=== PATIENT | male | born 1980 | race Two or more races ===

== ENCOUNTER 2020-03-19 13:25 | Outpatient (REF) | payer OTHER, SELFPAY ==
[2020-03-20 21:37] LABS: Follicle Stimulating Hormone 5.3 mIU/mL (1.6-8.0); Lutenizing Hormone 11.2 mIU/mL (1.5-9.3)
[2020-03-25 14:11] LABS: Testosterone, Total 389 ng/dL (250-1100)
[2020-03-25 16:32] LABS: Alpha Fetoprotein 2.5 ng/mL (<6.1)
== END 2020-03-19 13:26 | disposition home or self-care (01) ==
LOC: HO.LAB 13:25
PROVIDERS: PCP Internal Medicine; Visit Provider Urology
DX: N46.9 Male infertility, unspecified (principal)
CPT/HCPCS: 82105; 83001; 83002; 84402; 84403

== ENCOUNTER 2021-11-10 14:11 | Outpatient (REF) | payer OTHER, SELFPAY ==
[2021-11-15 20:22] LABS: Testosterone, Free 43.8 pg/mL (35.0-155.0); Testosterone, Total 256 ng/dL (250-1100)
== END 2021-11-10 14:12 | disposition home or self-care (01) ==
LOC: HO.MANLDS 14:11
PROVIDERS: Visit Provider Physician Assistant
DX: Z13.89 Encounter for screening for other disorder (principal)
CPT/HCPCS: 36415; 84402; 84403

== ENCOUNTER 2023-09-03 16:19 | Outpatient (REF) | payer OTHER, SELFPAY ==
[2023-09-03 17:35] LABS: MANUAL DIFF FLAG NO
[2023-09-03 17:42] LABS: Basophils Percent Auto 0.4 % (0-2); Eosinophils Absolute Auto 0.1 X10*3/uL (0.0-0.4); Eosinophils Percent Auto 1.5 % (0-4); Hematocrit 42.7 % (42.0-52.0); Hemoglobin 14.9 g/dl (14.0-18.0); Imm Gran Abs Auto 0.01 X10*3/uL (0.00-0.03); Imm Gran Pct Auto 0.2 % (0.0-0.4); Lymphocytes Absolute Auto 1.4 X10*3/uL (1.2-4.9); Lymphocytes Percent Auto 25.6 % (20-40); Mean Corpuscular HGB Conc 34.9 g/dl (31.0-36.0); Mean Corpuscular Hemoglobin 30.8 pg (27.0-33.0); Mean Corpuscular Volume 88.4 fL (80.0-98.0); Monocytes Absolute Auto 0.4 X10*3/uL (0.1-1.2); Monocytes Percent Auto 7.3 % (2-11); Neutrophils Absolute Auto 3.6 x10*3/uL (2.0-8.3); Platelet Count 174 X10*3/uL (160-400); Red Blood Count 4.83 X10*6/uL (4.60-5.80); Red Cell Distribution Width 13.1 % (11.0-16.0); White Blood Count 5.5 X10*3/uL (4.8-10.8)
[2023-09-03 18:37] LABS: Alanine Aminotransferase 35 U/L (0-40); Albumin Level 4.6 g/dL (3.5-5.0); Alkaline Phosphatase 84 U/L (39-117); Anion Gap 15 (12-20); Aspartate Amino Transferase 21 U/L (5-37); Bilirubin Total 0.3 mg/dL (0.0-1.0); Blood Urea Nitrogen 24 mg/dL (9-16); Calcium 9.3 mg/dL (8.4-10.2); Carbon Dioxide 25 mmol/L (22-29); Chloride 106 mmol/L (96-108); Estimated Glomerular Filt Rate > 60; Glucose Random 104 mg/dL (60-115); Potassium 3.6 mmol/L (3.3-5.1); Sodium 142 mmol/L (135-145); Total Protein 7.7 g/dL (6.5-8.0)
== END 2023-09-03 16:20 | disposition home or self-care (01) ==
LOC: HO.MANLDS 16:19
PROVIDERS: Visit Provider Physician Assistant
DX: Z01.818 Encounter for other preprocedural examination (principal)
CPT/HCPCS: 36415; 80053; 85025

== ENCOUNTER 2024-08-08 11:23 | Outpatient (REF) | payer OTHER, SELFPAY ==
--- OUTSIDE RECORDS SUMMARY | 2024-08-08 14:05 | XMS_ITS | Encounter Summary ---
Author Organization [facility] Address [address] [place] [address] Care Team Providers Care Inspector Final Assembly Conveyor Line Name Role Phone Pcp, No Primary Care Provider Unavailabl e Encounter Details Date Type Department Care Team (Late st Contact Info) Description 07/24/2024 Telephone [facility] [place] [address] [facility], [place] [address] Aston Talavera MD [address] [place] [address] [phone] Social History Tobacco Use Types Packs/Day Years Used Date Smoking Tobacco: Never Assessed Sex and Gender Information Value Date Recorded Sex Assigned at Not on file Gender Identity Not on file Sexual Orientation Not on file documented as of this encounter Miscellaneous Notes * Telephone Encounter - Kirsten Jack MA - 07/24/2024 9:15 AM EST Called and spoke with patients spouse. [facility] She will discuss further options with the sleep medicine providers. * Telephone Encounter - Kirsten Jack MA - 07/24/2024 9:15 AM EST ----- Message from Aston Talavera MD sent at 07/22/2024 5:31 PM EST ----- Regarding: Sleep study results Can you let Mandaen know his sleep study shows persistent sleep apnea. I recommend he be referredto sleep medicine for a more accurate in-lab study and possible CPAP titration/CPAP trial. Thanks ----- Message ----- From: Josefa Corbett Sent: 07/21/2024 1:03 PM EST To: Aston Talavera MD For your review. documented in this encounter Plan of Treatment Not on file documented as of this encounter Visit Diagnoses Not on filedocumented in this encounter Care Teams Inspector Final Assembly Conveyor Line Relationship Specialty Start Date End Date Pcp, No PCP - General General Medicine 06/13/24 documented as of this encounter
--- OUTSIDE RECORDS SUMMARY | 2024-08-08 14:05 | XMS_ITS ---
Author Name [facility] Organization Unknown Encounters Encounter Type Encounter Reason Primary Diagnosis Location Date Ambulatory Obstructive sleep apnea (adult) (pediatric) Obstructive sleep apnea (adult) (pediatric) [facility] 03/10/2024
--- OUTSIDE RECORDS SUMMARY | 2024-08-08 14:05 | XMS_ITS | Clinical Summary ---
Author Organization [facility] Address [address] [place] [id number] Care Team Providers Care Machine Lacer Name Role Phone Pcp, No Primary Care Provider Unavailabl e Encounters Date Type Department Care Team Description 07/24/2024 Telephone [facility] [place] [address] [facility], [place] [address] Aston Talavera MD 06/09/2024 Telephone [facility] [place] [address] [place] [address] Aston Talavera MD from Last 3 Months Social History Tobacco Use Types Packs/Day Years Used Date Smoking Tobacco: Never Assessed Sex and Gender Information Value Date Recorded Sex Assigned at Not on file Gender Identity Not on file Sexual Orientation Not on file Plan of Treatment Health Maintenance Due Date Last Done Comments Hepatitis C Virus Screening 1981 HIV Screening 1994 DTaP/Tdap/Td Vaccines (1 - Tdap) 2000 Hepatitis B Vaccines (1 of 3 - 19+ 3-dose series) 2000 Influenza Vaccine 12/30/2023 COVID-19 Vaccine (2023-2 5 season) 2024 HPV Vaccines Aged Out No longer eligi ble based on patient's age to complete this topic Pneumococcal Vaccine: Pediat stacey (0-5 Years) and At-Risk Patients (6 to 49 Years) Aged Out No longer eligible b ased on patient's age to complete this topic Care Teams Machine Lacer Relationship Specialty Start Date End Date Pcp, No PCP - General General Medicine 06/13/24
--- OUTSIDE RECORDS SUMMARY | 2024-08-08 14:05 | XMS_ITS | Data Portability ---
Author Organization [facility], Home Service Address [address] [place] [address] Assessment Encounter Date Assessment Date Assessment LastModified by Organization Details LastModified Time 03/22/2023 03/22/2023 The patient denies little pleasure in activities they find enjoyable, feeling depressed, difficulties sleeping, feeling tired or having little energy, change in appetite, feeling guilty, overwhelmed or unmotivated. The patient denies suicidal ideation, thoughts of hurting themselves or others. Their mood is appropriate, they show good judgement and clear understanding of the conversation. They are orientated to time, place and person. They are not expressing any concerning thoughts or actions that would need further investigation and treatment for mental health. [email or web address] Not available 03/22/2023 10:08:14 Plan of Treatment Reminders Order Date Submit Date Provider Last Modified By Organization Details Last Modified Time Details Appointments ANNUAL EXAM 2024 03:45P M CALIN RAYA Not available Not available Not available Lab CMP, serum or plasma 2023 024 [facility], [address], [address], [place], [address], 02/21/2024 00:14:02 lipid panel, blood 2023 024 [facility], [address], [address], [place], [address], 02/21/2024 00:14:02 CBC w/ auto diff 2023 024 [facility], [address], [address], [place], [address], 02/18/2024 22:58:39 hemoglobi n A1c, QN, blood 2023 024 [facility], [address], [address], [place], [address], 02/18/2024 23:25:58 vitamin D, 25-hydrox y, total, serum 2023 024 [facility], [address], [address], [place], [address], 02/21/2024 00:14:02 PSA, total + free, serum or plasma 2023 024 [facility], [address], [address], [place], [address], 02/14/2024 08:44:05 TSH + free T4, serum 2023 024 [facility], [address], [address], [place], [address], 02/14/2024 08:44:05 urinalysi s complete, reflex culture 2023 024 [facility], [address], [address], [place], [address], 02/19/2024 09:02:53 CBC w/ auto diff 2023 024 [facility], [address] [place] [address], [place], [address], 09/06/2023 11:41:24 CMP, serum or plasma 2023 024 [facility], [address] [place] [address], [place], [address], 09/06/2023 11:41:24 HbA1c (hemoglob in A1c), blood 2022 023 [facility], [address] [facility], [address], [place], [address], 01/29/2023 16:32:45 lipid panel, serum 2022 023 [facility], [address] [place] [address], [address], 02/05/2023 08:23:23 CMP, serum or plasma 2022 023 [facility], [address] [place] [address], [id number], 01/29/2023 16:32:45 CBC w/ auto diff 2022 023 [facility], [address] [place] [address], [address], 01/29/2023 16:32:45 testoster one, free + total, serum 2022 023 [facility], [address] [place] [address], [id number], 03/18/2023 18:13:40 Referral None recorded. Procedures None recorded. Surgeries None recorded. Imaging None recorded. Medication Orders minoxidil 2.5 mg tablet [address] [facility] #[id number], [address] [place], [place], [id number], 02/11/2024 16:18:46 testoster one cypionate 200 mg/mL intramusc ular oil [address] [facility] #[id number], [address] [place], [place], [id number], 02/11/2024 16:08:46 testoster one 12.5 mg/1.25 gram per pump actuation (1%) transderm al gel 2022 023 [facility] #22984, [address] [place], [place], [id number], 05/26/2023 15:45:04 minoxidil 2.5 mg tablet 2022 023 [facility] #[id number], [address], [place], [place], [id number], 03/18/2023 14:26:12 lorazepam 1 mg tablet 2022 023 [facility], [address], [place], [place], [id number], 01/29/2023 16:32:45 Patient TargetsNo targets recorded. Patient InstructionsNo instructions recorded. Reason for Referral None Reported. Results Created Date Observation Date Name Description Value Unit Range Abnormal Flag Note LastModifiedBy Organization Detail LastModifiedTime Result Notes None recorded. 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 on and off steroids Not Available [facility] 3 12:37:09 COVID-19 577876532 Active 2021 Not Available [facility] 3 12:37:09 Cough 38587746 Active 2021 Not Available [facility] 3 12:37:09 Intolera nce to lactose 304463977 Active 2021 Not Available [facility] 3 12:37:09 Fatigue 08349095 Active 2021 Not Available [facility] 3 12:37:09 Umbilica l hernia 057864309 Active 2021 Not Available [facility] 3 12:37:09 SARS-CoV -2 Active 2021 Not Available [facility] 3 12:37:09 Testoste una level below referenc e range 022202642 Active 2021 Not Available [facility] 3 12:37:09 Gastroes ophageal reflux disease 310739759 Active 2022 Not Available [facility] 3 12:37:09 Hypogona dism 52638822 Active 2022 Not Available [facility] 3 12:37:09 Loss of hair 868211000 Active 2022 Not Available [facility] 3 12:37:09 Primary hypogona dism 458438394 Active 2022 Not Available [facility] 3 12:37:09 Diarrhea 97811235 Active 2024 CALIN RAYA [address] [place] [address], [address], [facility] 5 18:59:06 Notes:Some problems listed i n Documents: #[id number], #[id number] could not be added to this patient's chart. Please review these documents and add these problems to the patient's chart manually as needed. Problem Notes None recorded. Medical Equipment None Reported. Allergies No known drug allergies Medications Name Sig Start Date Stop Date Status Note LastModified by Organization Details LastModified Time alcohol swabs 70 % pads 02/10 completed Not Available Not Available Not Available lorazepam 1 mg tabs 02/12 completed Not Available Not Available Not Available amox/k clav tab 875-125 02/11 completed Not Available Not Available Not Available bupropion HCl SR 150 mg tablet,12 hr sustained-r elease 01/27 completed Not Available Not Available Not Available azithromyci n 250 mg tablet TK 2 TS PO ON DAY 1, THEN TK 1 T PO D FOR 4 DAYS 01/29 completed Not Available Not Available Not Available cephalexin 250 mg capsule 01/27 completed Not Available Not Available Not Available hydrocodone 5 mg-acetamin ophen 325 mg tablet TAKE 1 TABLET BY MOUTH EVERY 6 HOURS NEEDED 01/29 completed Not Available Not Available Not Available acetaminoph en 300 mg-codeine 30 mg tablet 01/28 completed Not Available Not Available Not Available minoxidil 2.5 mg tablet TAKE 2 TABLETS BY MOUTH EVERY DAY active Not Available Not Available No t Available minoxidil 5 % topical solution APPLY 1 MILLILITE R BY TOPICAL ROUTE 2 TIMES PER DAY , EVERY DAY, DIRECTLY ONTO THE SCALP IN THE HAIR LOSS AREA 01/27 completed Not Available Not Available Not Available triamcinolo ne acetonide 0.1 % topical cream APPLY A THIN LAYER TO THE AFFECTED AREA(S) BY TOPICAL ROUTE 2 TIMES PER DAY 01/27 completed Not Available Not Available Not Available amoxicillin 875 mg tablet 01/27 completed Not Available Not Available Not Available BD Luer-Kaz Syringe 3 mL 23 gauge x 1 1/2 USE TO ADMINISTE R TESTOSTER ONE active Not Available Not Available No t Available omeprazole 20 mg capsule,del ayed release TAKE 1 CAPSULE BY MOUTH EVERY DAY 01/29 completed Not Available Not Available Not Available alcohol swabs USE 1 PAD TWICE A WEEK active Not Available Not Available No t Available lorazepam 1 mg tablet TAKE 1 TABLET BY MOUTH EVERY 8 HOURS NEEDED active Not Available Not Available No t Available testosteron e cypionate 200 mg/mL intramuscul ar oil ADMINISTE R 0.5 ML IN THE MUSCLE 2 TIMES A WEEK 2023 active Not Available Not Available Not Avai lable cefprozil 250 mg tablet 01/28 completed Not Available Not Available Not Available methylpredn isolone 4 mg tablets in a dose pack 01/28 completed Not Available Not Available Not Available testosteron e 1 % (25 mg/2.5 gram) transdermal gel packet use as directed 05/26 completed Not Available Not Available Not Available cefdinir 300 mg capsule 01/28 completed Not Available Not Available Not Available doxycycline hyclate 100 mg tablet Take 1 tablet twice a day by oral route for 1 day. 10/29 completed Not Available Not Available Not Available finasteride 1 mg tablet TAKE 1 TABLET BY MOUTH EVERY DAY 02/11 completed Not Available Not Available Not Available testosteron e 1 % (50 mg/5 gram) transdermal gel packet APPLY 1 PACKET TOPICALLY EVERY DAY DIRECTED 09/05 completed Not Available Not Available Not Available oxycodone 5 mg tablet TAKE 1 TABLET BY MOUTH EVERY 4 HOURS FOR 5 DAYS NEEDED FOR SEVERE PAIN 10/10 completed Not Available Not Available Not Available Testim 50 mg/5 gram (1 %) transdermal gel APPLY 1 PACKET TOPICALLY DAILY DIRECTED 10/10 completed Not Available Not Available Not Available testosteron e 12.5 mg/1.25 gram per pump actuation (1%) transdermal gel APPLY 4 PUMPS TOPICALLY TO THE AFFECTED AREA EVERY DAY 05/26 completed Not Available Not Available Not Available BD Integra Syringe 3 mL 21 gauge x 1 / DIRECTED 02/10 completed Not Available Not Available Not Available PreviDent 5000 Booster Plus 1.1 % dental paste BRUSH WITH A PEA-SIZED AMOUNT ONCE DAILY AND EXPECTORA TE active Not Available Not Available No t Available Vitals Date Recorded Body height Body mass index (BMI) Body weight Heart rate Oxygen saturation Oxygen saturation in Arterial blood by Pulse oximetry Systolic blood pressure Diastolic blood pressure Provider Name and Address Organization Details Last Updated DateTime 2 172.72 cm 31.9 kg/m2 50153.0 4 g 72 /min 98 % 98 % 122 mm[Hg] 78 mm[Hg] Josi Bob [facility] 2 16:11:51 Date Recorded Body weight Body mass index (BMI) Body height Heart rate Oxygen saturation Oxygen saturation in Arterial blood by Pulse oximetry Systolic blood pressure Diastolic blood pressure Provider Name and Address Organization Details Last Updated DateTime 3 65607.8 1 g 31.8 kg/m2 172.72 cm 70 /min 98 % 98 % 138 mm[Hg] 80 mm[Hg] Faina Vergara [facility] 3 16:05:47 Date Recorded Body height Body mass index (BMI) Body weight Heart rate Oxygen saturation Oxygen saturation in Arterial blood by Pulse oximetry Systolic blood pressure Diastolic blood pressure Provider Name and Address Organization Details Last Updated DateTime 4 172.72 cm 31.9 kg/m2 71921.4 g 86 /min 97 % 97 % 128 mm[Hg] 82 mm[Hg] Dakota Patino [facility] 4 16:02:22 Date Recorded Body height Body mass index (BMI) Body weight Heart rate Oxygen saturation Oxygen saturation in Arterial blood by Pulse oximetry Systolic blood pressure Diastolic blood pressure Provider Name and Address Organization Details Last Updated DateTime 4 172.72 cm 33.2 kg/m2 96632.9 3 g 86 /min 95 % 95 % 124 mm[Hg] 88 mm[Hg] Corinne Georgi [facility] 4 16:02:06 Social History Question Answer Notes LastModified by Organizat ion Details LastModified Time Tobacco Smoking Status Never Smoker Dona Nikita walters [facility] 01/28/2018 09:17:51 What Was The Date Of Your Most Recent Tobacco Screening? 02/11/2024 [email or web address] Information not available 02/11/2024 Do You Or Have You Ever Used Any Other Forms Of Tobacco Or Nicotine? No [email or web address] Information not available 01/29/2023 Sex: Unknown Functional Status None recorded. Mental Status None recorded. Family History Nothing Reported. Medical History No medical history recorded. Immunizations Vaccine Type Date Status Note Provider Nam e and Address Organization Details Recorded Time Tdap 02/05/2011 completed Not Available [facility] 04/13/2023 12:37:10 Past Encounters Encounter ID Performer Location Encounter Start Date Encounter Closed Date Diagnosis/Indication Diagnosis SNOMED-CT Code Diagnosis ICD10 Code Diagnosis Note [id number] [facility] [address] [place] [address], [place] [address] 01/28/2018 09:14:33 01/28/2018 09:42:40 Adult health examination 116149142 Z00.01 Impaired f asting glycemia 517903794 R73.01 Eczema 38121265 L30.9 currently inactive 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 [id number] [facility] [address] [facility],[place] [address] 01/27/2019 16:03:34 01/27/2019 16:47:46 Male pattern alopecia 38244621 L64.9 Adult heal th examination 828113813 Z00.00 Active or passive immunization 858741677 Z23 Abnormal testosterone 13 7374995 R94.7 Venereal d isease screening 571155346 Z11.3 [id number] CALIN RAYA [facility] [address] [facility] [address] [address] 02/12/2020 08:58:46 02/12/2020 10:33:20 Adult health examination 635844226 Z00.00 BP is excellent today Screening for cardiovascular system disease 850752359 Z13.6 will check labs Umbilical hernia 3141651 07 K42.9 will have him evaluated by general surgery [id number] CALIN RAYA [facility] [address] [facility] [address] [address] 10/29/2021 09:41:53 10/29/2021 15:17:20 History of hernia repair 2743342628 9109 Z98.890 can take PRN following hernia repair surgery Anxiety 38338863 F41.1 will need refill Cough 36500634 R05.1 can use mucinex if needed COVID-19 777154364 U07.1 will continue to monitor symptoms [id number] CALIN RAYA [facility] [address] [facility],[place] [address] 11/10/2021 13:33:10 11/11/2021 09:15:25 Intolerance to lactose 689856464 E73.0 will fu with log tumbler referral Fatigue 17306220 R53.83 will fu with testostero ne check Umbilical hernia 7972098 07 K42.9 resolved with surgery [id number] CALIN RAYA [facility] [address] [facility] [address] [address] 01/28/2022 15:59:47 01/28/2022 16:37:35 Active or passive immunization 729373447 Z23 pt advised past due; will consider getting at [facility] Adult heal th examination 557688776 Z00.00 BP is excellent today Depression screening 171 792782 Z13.31 negative/ score 2 [id number] CALIN RAYA [facility] [address] [facility] [address] [address] 01/29/2023 15:59:13 01/29/2023 16:46:24 Active or passive immunization 937447154 Z23 pt advised past due; will consider getting at pharm Adult [facility] th examination 639116065 Z00.00 BP is excellent today Anxiety 79397475 F41.1 will need refill Gastroesop hageal reflux disease 412065024 K21.9 Hypercholesterolemia 136 39869 E78.2 needs recheck BW Impaired f asting glycemia 349988180 R73.01 stableneed s recheck Testostero ne level below reference range 195930936 R79.89 will set up with levels again per endo Hypogonadism 49124554 E2 9.1 will set up with T level Loss of hair 573048493 L 63.1 switch to pilldoes not want topical [id number] CALIN RAYA [facility] [address] [facility],[place] [address] 03/22/2023 09:03:19 03/22/2023 10:41:05 Primary hypogonadism 259407938 E29.1 will set up with T gel againtwo low values, [facility], worsening Impaired f asting glycemia 019805667 R73.01 A1c is up to 6.0%discus sed dietary changes [id number] CALIN RAYA Internal [facility] [address] [place] [address] 09/03/2023 15:58:30 09/03/2023 16:17:12 Pre-surgery evaluation 619608579 Z01.818 The patient was seen in the office today for pre-op evaluation . All medical conditions on patient's problem list were addressed and are currently stable, no interventi on needed at this time. Based on history and physical performed, the patient is cleared for surgery. lab work will be sent separately [id number] CALIN RAYA Internal [facility] [address] [facility],[place] [address] 02/11/2024 15:57:28 02/11/2024 16:31:55 Active or passive immunization 792319262 Z23 pt advised past due; will consider getting at pharm Adult [facility] th examination 555417524 Z00.00 BP is excellent today Depression screening 171 760796 Z13.31 negative/ score 2 Primary hypogonadism 370 005843 E29.1 increased to twice a week instead for better effect for patientnee ds adjustment of needle amount Loss of hair 160828866 L 63.1 switch to pilldoes not want topical Health Concerns Section Related Observation LastModified by Organization Detai ls LastModified Time None Recorded Concern Status LastModified by Organization Details LastModified Time None Recorded Advance Directives Directive None Recorded Payers Encounter Date Sequence Insurance Name Policy Number Policy Rios Covered Member ID Rios Member ID Guarantor Name 01/28/2022 1 [facility] [id number] [employer] [id number] [employer] 01/29/2023 1 [facility] [id number] [employer] [id number] [employer] 03/22/2023 1 [facility] [id number] [employer] [id number] [employer] 09/03/2023 1 [facility] [id number] [employer] [id number] [employer] 02/11/2024 1 [facility] [id number] [employer] [id number] [employer] Notes Date Note Type Note Provider Name a md Address Organization Details Recorded Time text/html Annual WellnessReported bypatient.Diet and Nutrition:healthy diet; discussed vitamin and supplement use; discussed portion control; discussed maintaining calcium balance; discussed diet improvement Fracture Risk:no history of fractures; no recent explained fracture; no sudden unexplained fractures; no previous musculoskeletal injuries Physical Activity:exercises on a regular basis; recent increase in physical activity; good physical condition Additional Lifestyle Factors:no tobacco use; drinks alcohol (mild-moderate) Depression Risk:never feels sad, empty, or tearful; no loss of interest in activities; no significant changes in weight; no sleep disturbances or insomnia; no agitation; no loss of energy; no feelings of worthlessness or guilt; no thoughts of suicide;history of mood disorders;history of depression; will fu with enodrine for T levels and start that Hearing:no loss of hearing Vision:no vision problems the patient bowels and sleeping has improved after the correction of the umbilical herniaseeing DChivo Steve for his testosterone CALIN RAYA [address] [place], [address], [facility] 01/28/2022 16:33:27 3 text/html Annual WellnessReported bypatient.Diet and Nutrition:healthy diet; discussed vitamin and supplement use; discussed portion control; discussed maintaining calcium balance; discussed diet improvement Fracture Risk:no history of fractures; no recent explained fracture; no sudden unexplained fractures; no previous musculoskeletal injuries Physical Activity:exercises on a regular basis; recent increase in physical activity; good physical condition Additional Lifestyle Factors:no tobacco use; no alcohol intake; stopped drinking alcohol Depression Risk:never feels sad, empty, or tearful; no loss of interest in activities; no significant changes in weight; no sleep disturbances or insomnia; no agitation; no loss of energy; no feelings of worthlessness or guilt; no thoughts of suicide; no history of depression; no history of mood disorders Hearing:no loss of hearing Vision:no vision problems discussed endo F/Usuggested getting levels down in the afternoonpt agreestrying to get medication covered has f/u with sleep medicine for repeat surgery CALIN RAYA [address] [place], [address], [facility] 01/29/2023 16:40:23 3 text/html f/u lab work tele-med phone callpatient consents to phone call the patient has seen endo for the T, no changes in their therapy, was not able to start T gelthe patient continues with weight gain, fatigue, hair changes, low libidowill set up with T gel again and try pushing it through the insurance the patient and I discussed sugar level, A1c is 6.0% will set up with diet and exercise planworking on exercise as well CALIN RAYA [address] [place], [address], [facility] 03/22/2023 10:11:11 4 text/html Pre-OpReported bypatient.Surgery to be Performed:palatoplast y with Dr. Aston Talavera at [facility] Context/Condition Being Addressed:palatoplast y Risk Factorsno cognitive impairment; no functional impairment; no malnutrition; no frailty; able to climb a flight of stairs (exercise capacity>4 METS); no obstructive sleep apnea; non-smoker; no alcohol misuse; no illicit drug use; no chronic cardiopulmonary condition; not obese Anesthesia hx:no hx of anesthesia complications; no allergy to anesthetic agents; no family history of anesthesia complications Functional Ability:able to walk up stairs; able to perform heavy work around the house; no difficulty walking up hills; able to walk 4 mph Post-Op Support:adequate assistance at home () CALIN RAYA [address] [place] [address], [address], [facility] 09/03/2023 16:12:34 4 text/html Annual WellnessReported bypatient.Diet and Nutrition:healthy diet; discussed vitamin and supplement use; discussed portion control; discussed maintaining calcium balance; discussed diet improvement Fracture Risk:no history of fractures; no recent explained fracture; no sudden unexplained fractures; no previous musculoskeletal injuries Physical Activity:exercises on a regular basis; recent increase in physical activity; good physical condition Additional Lifestyle Factors:no tobacco use; no alcohol intake; stopped drinking alcohol Depression Risk:never feels sad, empty, or tearful; no loss of interest in activities; no significant changes in weight; no sleep disturbances or insomnia; no agitation; no loss of energy; no feelings of worthlessness or guilt; no thoughts of suicide; no history of depression; no history of mood disorders Hearing:no loss of hearing Vision:no vision problems better after surgery for sleephas a f/u at home sleep study to compare needs CALIN RAYA [address] [place] [address], [phone], [facility] 02/11/2024 16:31:36
[2024-08-08 15:16] LABS: Adenovirus F 40/41 Not Detected (Not Detect.); Astrovirus Not Detected (Not Detect.); Campylobacter Not Detected (Not Detect.); Cryptosporidium Not Detected (Not Detect.); Cyclospora cayetanensis Not Detected (Not Detect.); E. coli EAEC Not Detected (Not Detect.); E. coli EPEC Not Detected (Not Detect.); E. coli ETEC Not Detected (Not Detect.); E. coli STEC Not Detected (Not Detect.); Entamoeba histolytica Not Detected (Not Detect.); Giardia lamblia Not Detected (Not Detect.); Norovirus GI/GII Not Detected (Not Detect.); Plesiomonas shigelloides Not Detected (Not Detect.); Rotavirus A Not Detected (Not Detect.); Salmonella Not Detected (Not Detect.); Sapovirus Not Detected (Not Detect.); Shigella sp./EIEC Not Detected (Not Detect.); Vibrio Not Detected (Not Detect.); Vibrio Cholerae Not Detected (Not Detect.); Yersinia enterocolitica Not Detected (Not Detect.)
== END 2024-08-08 11:24 | disposition home or self-care (01) ==
LOC: HO.LNP 11:23
PROVIDERS: Visit Provider Physician Assistant
DX: R19.7 Diarrhea, unspecified (principal)
CPT/HCPCS: 87507

== ENCOUNTER 2025-05-09 14:22 | Outpatient (REF) | payer OTHER, SELFPAY ==
[2025-05-09 18:20] LABS: MANUAL DIFF FLAG NO
[2025-05-09 18:41] LABS: Hematocrit 49.9 % (42.0-52.0); Hemoglobin 16.5 g/dl (14.0-18.0); Imm Gran Abs Auto 0.02 X10*3/uL (0.00-0.03); Imm Gran Pct Auto 0.4 % (0.0-0.4); Lymphocytes Absolute Auto 1.0 X10*3/uL (1.2-4.9); Mean Corpuscular HGB Conc 33.1 g/dl (31.0-36.0); Mean Corpuscular Hemoglobin 28.4 pg (27.0-33.0); Mean Corpuscular Volume 85.7 fL (80.0-98.0); NRBC Abs Auto 0.000 X10*3/uL (0.0-0.012); NRBC Pct Auto 0.0 /100WBC (0.0-0.2); Platelet Count 188 X10*3/uL (160-400); Red Blood Count 5.82 X10*6/uL (4.60-5.80); White Blood Count 5.5 X10*3/uL (4.8-10.8)
[2025-05-09 18:51] LABS: Alanine Aminotransferase 40 U/L (0-40); Albumin Level 4.8 g/dL (3.5-5.0); Alkaline Phosphatase 63 U/L (39-117); Anion Gap 11 (12-20); Aspartate Amino Transferase 28 U/L (5-37); Blood Urea Nitrogen 23 mg/dL (9-16); Calcium 8.8 mg/dL (8.4-10.2); Carbon Dioxide 29 mmol/L (22-29); Chloride 106 mmol/L (96-108); Estimated Glomerular Filt Rate > 60; Potassium 3.8 mmol/L (3.3-5.1); Sodium 142 mmol/L (135-145); Total Protein 7.7 g/dL (6.5-8.0)
--- OUTSIDE RECORDS SUMMARY | 2025-05-09 22:36 | XMS_ITS | Clinical Summary ---
Author Organization [facility] Address [address] [place] [address] Care Team Providers Care Community Health Planning Director Name Role Phone Yasir Del Rio DO Primary Care Provider Allergies No known active allergies Medications anastrozole (ARIMIDEX) 1 MG tablet Take 1 mg by mouth 11/07/2024 Active minoxidil (LONITEN) 2.5 MG tablet Take 5 mg by mouth. 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 Decreased testosterone level 11/25/2021 S/P umbilical hernia repair, follow-up exam 10/29 Fatigue 11/10/2021 Lactose intolerance 11/10/2021 Umbilical hernia 11/10/2021 Abnormal liver function tests 01/26/2018 Overview (11/23/2024): elevated Anxiety 01/26/2018 Hypercholesterolemia 01/26/2018 Impaired fasting glucose 01/26/2018 Resolved Problems Problem Noted Date Diagnosed Date Resolved Date Colitis 11/15/2024 12/25/2024 Immunizations Immunization Administration Dates Next Due Tdap 02/05/2011 Social History Tobacco Use Types Packs/Day Years Used Date Smoking Tobacco: Never Assessed Sex and Gender Information Value Date Recorded Sex Assigned at Male 10/09/2024 11:54 AM EDT Legal Sex Male 5:31 PM EDT Gender Identity Male 10/09/2024 11:54 AM EDT Sexual Orientation Heterosexual (straight) 10/09 11:54 AM EDT Last Filed Vital Signs Vital Sign Reading Time Taken Comments Blood Pressure - - Pulse - - Temperature - - Respiratory Rate - - Oxygen Saturation - - Inhaled Oxygen Concentration - - Weight 93.9 kg (207 lb) 11/23/2024 1:09 PM EDT Height 177.8 cm (5' 10 ) 11/23/2024 1:09 PM EDT Body Mass Index 29.7 11/23/2024 1:09 PM EDT Plan of Treatment Health Maintenance Due Date Last Done Comments Hepatitis C Virus Screening 1981 HIV Screening 1994 Hepatitis B Vaccines (1 of 3 - 19+ 3-dose series) 2000 DTaP/Tdap/Td Vaccines (2 - T d or Tdap) 02/05/2021 02/05/2011 Influenza Vaccine 12/29/2024 COVID-19 Vaccine (2024-2 6 season) 2025 05/16/2021, 10/06/2020, 09/14/2020 HPV Vaccines (No Doses Required) Completed Pneumococcal Vaccine: Pediatric (0-5 Years) and At-Risk Patients (6 to 49 Years) Aged Out No longer eligible b ased on patient's age to complete this topic Insurance Care Teams Community Health Planning Director Relationship Specialty Start Date End Date Yasir Del Rio DO [address] [facility] [place] [address] [place] [address] PCP - General 10/27/24
--- OUTSIDE RECORDS SUMMARY | 2025-05-09 22:36 | XMS_ITS | Encounter Summary ---
Author Organization [facility] Address [address] [place], [place] [id number] Care Team Providers Care Switch Operator Name Role Phone Yasir Del Rio DO Primary Care Provider [phone] Encounter Details Date Type Department Care Team (Late st Contact Info) Description 10/27/2024 Scanned Document [facility] [address] [facility] [place] [id number] Aston Talavera MD [address] [place] [address] Social History Tobacco Use Types Packs/Day Years Used Date Smoking Tobacco: Never Assessed Sex and Gender Information Value Date Recorded Sex Assigned at Male 10/09/2024 11:54 AM EDT Legal Sex Male 5:31 PM EDT Gender Identity Male 10/09/2024 11:54 AM EDT Sexual Orientation Heterosexual (straight) 10/09 11:54 AM EDT documented as of this encounter Plan of Treatment Not on file documented as of this encounter Visit Diagnoses Not on filedocumented in this encounter Care Teams Switch Operator Relationship Specialty Start Date End Date Yasir Del Rio DO [address] [facility] [place] [address] [place] [address] PCP - General 10/27/24 documented as of this encounter
--- OUTSIDE RECORDS SUMMARY | 2025-05-09 22:36 | XMS_ITS | Encounter Summary ---
Author Organization [facility] Address [address] [facility] [address] [place] [phone] Phone Care Team Providers Care Manager Data Warehouse Name Role Phone Yasir Del Rio DO Primary Care Provider [phone] Encounter Details Date Type Department Care Team ([facility] st Contact Info) Description 10/15/2021 Procedure Pass OR Admitting Dept - Virtual Department [address] [place] [id number] Social History Tobacco Use Types Packs/Day Years Used Date Smoking Tobacco: Never Smokeless Tobacco: Never Alcohol Use Standard Drinks/Week Comments Yes 0 (1 standard drink = 0.6 oz pur e alcohol) occasionally Sex and Gender Information Value Date Recorded Sex Assigned at Not on file Legal Sex Male 9:19 PM EDT Gender Identity Not on file Sexual Orientation Not on file documented as of this encounter Plan of Treatment Not on file documented as of this encounter Visit Diagnoses Not on filedocumented in this encounter Additional Health Concerns Infection Onset Date Last Indicated Resolved Time CoV-Presumed 10/28/2021 10/28/2021 11/18/2021 1:22 AM EDT documented as of this encounter Care Teams Manager Data Warehouse Relationship Specialty Start Date End Date Yasir Del Rio DO PCP - General Internal Medicine 03/27/19 documented as of this encounter Additional Source Comments The information contained in this document represents components of the legal health record. It is not the complete legal health record.[facility]
--- OUTSIDE RECORDS SUMMARY | 2025-05-09 22:36 | XMS_ITS | Continuity of Care Document ---
Author Organization [facility] Address [address] [facility] [place] [address] [place] [address] Assessment No assessment recorded. Plan of Treatment Reminders Order Date Submit Date Provider Last Modified By Organization Details Last Modified Time Details Appointments ANNUAL EXAM 2024 01:30P M CALIN RAYA Not available Not available Not available Lab CMP, serum or plasma 2024 025 [facility], [address] [place] [address], [id number], 05/09/2025 14:00:41 CBC w/ auto diff 2024 025 [facility], [address] [place] [address], [id number], 05/09/2025 14:00:42 CMP, serum or plasma 2024 025 [facility], [address] [place] [address], [id number], 05/09/2025 14:00:41 testoster one, free + total, serum 2024 025 [facility], [address] [place] [address], [id number], 05/09/2025 14:00:41 estradiol , serum 2024 025 [facility], [address] [place] [address], [id number], 05/09/2025 14:00:42 lh + FSH, serum 2024 025 [facility], [address] [place] [address], [id number], 05/09/2025 14:00:41 progester one, serum 2024 025 [facility], [address] [place] [address], [id number], 05/09/2025 14:00:41 dhea-sulf ate, serum 2024 025 [facility], [address] [place] [address], [id number], 05/09/2025 14:00:41 estrogen, total, serum 2024 025 [facility], [address] [place] [address], [id number], 05/09/2025 14:00:41 Referral None recorded. Procedures None recorded. Surgeries None recorded. Imaging None recorded. Medication Orders tamoxifen 10 mg tablet 2024 025 [id number], [address], [place], [id number], 05/09/2025 14:07:56 Patient TargetsNo targets recorded. Patient InstructionsNo instructions recorded. Reason for Referral None Reported. 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 Not Available [facility] 3 12:37:09 COVID-19 160149112 Active 2021 Not Available [facility] 3 12:37:09 Cough 33674916 Active 2021 Not Available [facility] 3 12:37:09 SARS-CoV -2 Active 2021 Not Available [facility] 3 12:37:09 Intolera nce to lactose 520778702 Active 2021 Not Available [facility] 3 12:37:09 Fatigue 99655314 Active 2021 Not Available [facility] 3 12:37:09 Umbilica l hernia 032730880 Active 2021 Not Available [facility] 3 12:37:09 Testoste una level below referenc e range 172085407 Active 2021 Not Available [facility] 3 12:37:09 Gastroes ophageal reflux disease 079077481 Active 2022 Not Available [facility] 3 12:37:09 Hypogona dism 07462035 Active 2022 Not Available [facility] 3 12:37:09 Loss of hair 318995643 Active 2022 Not Available [facility] 3 12:37:09 Primary hypogona dism 410134525 Active 2022 Not Available [facility] 3 12:37:09 Diarrhea 95963496 Active 2024 CALIN RAYA [address] [place], [address], [facility] 5 18:59:06 Abdomina l pain 46444985 Active 2024 CALIN RAYA [address] [place], [address], [facility] 5 16:40:51 Gastriti s 9339038 Active 2024 CALIN RAYA [address] [place] [address], [phone], [facility] 5 16:51:53 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 5 09:44:52 Colitis 44096212 Active 2024 CALIN RAYA [address] [place] [address], [phone], [facility] 5 10:50:49 Divertic ulitis 676175794 Active 2024 CALIN RAYA [address] [place] [address], [phone], [facility] 5 10:51:14 Perforat ion of colon 14437119 Active 2024 CALIN RAYA [address] [place] [address], [phone], [facility] 15:18:49 Notes:Some problems listed i n Documents: #[id number], #[id number] could not be added to this patient's chart. Please review these documents and add these problems to the patient's chart manually as needed. Problem Notes None recorded. Medical Equipment None Reported. Allergies No known drug allergies Medications Name Sig Start Date Stop Date Status Note LastModified by Organization Details LastModified Time lorazepam 1 mg tabs 02/12 completed Not Available Not Available Not Available amox/k clav tab 875-125 02/11 completed Not Available Not Available Not Available alcohol swabs 70 % pads 02/10 completed Not Available Not Available Not Available anastrozole 1 mg tablet TAKE 1 TABLET BY MOUTH EVERY DAY active Not Available Not Available No t Available bupropion HCl SR 150 mg tablet,12 [...] completed Not Available Not Available Not Available metronidazo le 500 mg tablet TAKE 1 TABLET BY MOUTH EVERY 8 HOURS FOR 10 DAYS 03/18 completed Not Available Not Available Not Available acetaminoph en 300 mg-codeine 30 mg tablet 01/28 completed Not Available Not Available Not Available ciprofloxac in 500 mg tablet TAKE 1 TABLET BY MOUTH EVERY 12 HOURS FOR 10 DAYS 03/18 completed Not Available Not Available Not Available [...] Not Available Not Available No t Available tamoxifen 10 mg tablet Take 1 tablet every day by oral route as directed for 90 days. 2024 active Not Available Not Available Not Avai lable chorionic gonadotropi n, human 10,000 unit IM powder for solution MIX AND INJECT 500 UNITS INTRAMUSC ULARLY 3 TIMES WEEKLY (DISCARD 60 DAYS AFTER MIXING) 2024 active Not Available Not Available Not Avai lable pantoprazol e 40 mg tablet,angela yed release TAKE 1 TABLET BY MOUTH EVERY DAY 2024 active Not Available Not Available Not Avai lable omeprazole 20 mg capsule,del ayed release TAKE [...] e cypionate 200 mg/mL intramuscul ar oil INJECT 0.75 ML IN THE MUSCLE TWICE A WEEK active Not Available Not Available No t Available cefprozil 250 mg tablet 01/28 completed Not Available Not Available Not Available levofloxaci n 750 mg tablet TAKE 1 TABLET BY MOUTH EVERY DAY FOR 7 DAYS 11/15 completed Not Available Not Available Not Available [...] completed Not Available Not Available Not Available tamoxifen 20 mg tablet TAKE 1 TABLET BY MOUTH EVERY DAY 2024 active Not Available Not Available Not Avai lable finasteride 1 mg tablet TAKE 1 TABLET BY MOUTH EVERY DAY 02/11 completed Not Available Not Available Not Available testosteron e 1 % (50 mg/5 gram) transdermal gel packet APPLY 1 PACKET TOPICALLY EVERY DAY DIRECTED 09/05 completed Not Available Not Available Not Available oxycodone 5 mg tablet TAKE 1 TABLET BY MOUTH EVERY 4 HOURS NEEDED FOR SEVERE PAIN. 11/15 completed Not Available Not Available Not Available [...] Syringe 3 mL 21 gauge x 1 1/2 DIRECTED 02/10 completed Not Available Not Available Not Available PreviDent 5000 Booster Plus 1.1 % dental paste BRUSH WITH A PEA-SIZED AMOUNT ONCE DAILY AND EXPECTORA TE active Not Available Not Available No t Available Vitals Date Recorded Body height Body mass index (BMI) Body weight Heart rate Oxygen saturation Systolic And Diastolic Provider Name and Address Organization Details Last Updated DateTime 172.72 cm 33.1 kg/m2 72160.1 4 g 78 /min 98 % 120/70 mm[Hg] Faina Vergara [facility] 13:39:36 Social History Question Answer Notes LastModified by Organizat ion Details LastModified Time Tobacco Smoking Status Never Smoker Dona walters [facility] 01/28/2018 09:17:51 What Was The Date Of Your Most Recent Tobacco Screening? 05/09/2025 [email or web address] Information not available 05/09/2025 Sex: Male Functional Status Question Answer Note LastModified by Organization D etails LastModified Time Do you or have you ever used any other forms of tobacco or nicotine? No [email or web address] Information not available 01/29/2023 Mental Status None recorded. Family History Nothing Reported. Medical History No medical history recorded. Immunizations Vaccine Type Date Status Note Provider Nam e and Address Organization Details Recorded Time Tdap 02/05/2011 completed Not Available [facility] 04/13/2023 12:37:10 Past Encounters Encounter ID Performer Location Encounter Start Date Encounter Closed Date Diagnosis/Indication Diagnosis SNOMED-CT Code Diagnosis ICD10 Code Diagnosis IMO Codes Diagnosis Note [id number] CALIN RAYA [facility] [address] [facility],[place] [address] 05/09/2025 13:32:28 05/09/2025 14:16:50 General examination of patient 622437746 Z00.00 335296 BP is excellent today Impaired f asting glycemia 165586649 R73.01 will set up with screening Hypogonadism 27607676 E2 9.1 will set up with lab work before start aromatase inhibitor Primary hypogonadism 370 412909 E29.1 stable Health Concerns Section Related Observation LastModified by Organization Detai ls LastModified Time None Recorded Concern Status LastModified by Organization Details LastModified Time None Recorded Payers Encounter Date Sequence Insurance Name Policy Number Policy Rios Covered Member ID Rios Member ID Guarantor Name 05/09/2025 1 [facility] [id number] Bahai Saunders [id number] Jim Saunders Notes Date Note Type Note Provider Name a nd Address Organization Details Recorded Time 5 text/html Annual WellnessReported by PatientSocial/Behavio ral HistoryFor diet and nutrition, patient reportshealthy diet,discussed vitamin and supplement use,discussed portion control,discussed maintaining calcium balance, anddiscussed diet improvement. For fracture risk, patient reportsno history of fractures,no recent explained fracture,no sudden unexplained fractures, andno previous musculoskeletal injuries. For physical activity, patient reportsexercises on a regular basis,recent increase in physical activity,good physical condition,discussed weightbearing activities, anddiscussed exercise habits. For additional lifestyle factors, patient reportsno tobacco useanddrinks alcohol (mild-moderate).Menta l Status:For depression risk, patient reportsnever feels sad, empty, or tearful,no loss of interest in activities,no significant changes in weight,no sleep disturbances or insomnia,no agitation,no loss of energy,no feelings of worthlessness or guilt,no thoughts of suicide,no history of depression, andno history of mood disorders.Functional AbilityFor hearing, patient reportsno loss of hearing. For vision, patient reportsno vision problems.ROS as noted in the HPI he has had some flare ups of the diverticulitis >mild, no fever, no chills, no sob, no abdominal pain CALIN RAYA [address], [place], [address], [facility] 05/09/2025 14:16:48
--- OUTSIDE RECORDS SUMMARY | 2025-05-09 22:36 | XMS_ITS | Data Portability ---
Author Organization [facility], Telehealth Patient Home Address [address] [place] [address] Assessment Encounter Date Assessment Date Assessment LastModified by Organization Details LastModified Time 09/19/2024 09/19/2024 Due to this appointment being done using a telemedicine platform (phone call or video call), we were unable to perform a physical exam on the patient. The patient is otherwise alert, awake, and oriented to time, place and self and in no signs of acute distress. [email or web address] Not available 09/19/2024 12:05:06 Plan of Treatment Reminders Order Date Submit Date Provider Last Modified By Organization Details Last Modified Time Details Appointments ANNUAL EXAM 2024 01:30P CALIN WATKINS Not available Not available Not available Lab CMP, serum or plasma 2024 025 [facility], [address] [place] [address], [id number], 05/09/2025 14:00:41 CBC w/ auto diff 2024 025 [facility], [address] [place] [address], [address], 05/09/2025 14:00:42 CMP, serum or plasma 2024 025 [facility], [address] [place] [address], [address], 05/09/2025 14:00:41 testoster one, free + total, serum 2024 025 [facility], [address] [place] [address], [place], [address], 05/09/2025 14:00:41 estradiol , serum 2024 025 [facility], [address] [place] [address], [address], 05/09/2025 14:00:42 lh + FSH, serum 2024 [facility], [address] [place] [address], [address], 05/09/2025 14:00:41 progester one, serum 2024 [facility], [address] [place] [address], [address], 05/09/2025 14:00:41 dhea-sulf ate, serum 2024 [facility], [address] [place] [address], [address], 05/09/2025 14:00:41 estrogen, total, serum 2024 025 [facility], [address] [place] [address], [place], [address], 05/09/2025 14:00:41 prolactin , serum 2024 025 [facility], [address], [address], [place], [address], 09/27/2024 11:54:06 testoster one, free + total, serum 2024 025 [facility], [address], [address], [place], [address], 11/08/2024 01:05:40 lh + FSH, serum 2024 025 [facility], [address], [address], [place], [address], 09/22/2024 13:07:25 estradiol , serum 2024 025 [facility], [address], [address], [place], [address], 10/10/2024 09:30:57 progester one, serum 2024 025 [facility], [address], [address], [place], [address], 11/06/2024 00:49:12 dhea-sulf ate, serum 2024 025 [facility], [address], [address], [place], [address], 09/27/2024 11:58:21 CMP, serum or plasma 2023 024 [facility], [address], [address], [place], [address], 02/21/2024 00:14:02 lipid panel, blood 2023 024 [facility], [address], [address], [place], [address], 02/21/2024 00:14:02 CBC w/ auto diff 2023 024 [facility], [address], [address], [place], [address], 02/18/2024 22:58:39 hemoglobi n A1c, QN, blood 2023 024 [facility], [address], [address], [place], [address], 02/18/2024 23:25:58 vitamin D, 25-hydrox y, total, serum 2023 024 [facility], [address], [address], [place], [address], 02/21/2024 00:14:02 PSA, total + free, serum or plasma 2023 024 [facility], [address], [address], [place], [address], 02/14/2024 08:44:05 TSH + free T4, serum 2023 024 [facility], [address], [address], [place], [address], 11/03/2024 13:54:27 urinalysi s complete, reflex culture 2023 024 [facility], [address], [address], [place], [address], 02/19/2024 09:02:53 Referral None recorded. Procedures None recorded. Surgeries None recorded. Imaging None recorded. Medication Orders tamoxifen 10 mg tablet 20[address] [id number], [address], [place], [id number], 05/09/2025 14:07:56 Pregnyl 10,000 unit intramusc ular solution 2024 025 [id number], [address] [place], [place], [id number], 11/15/2024 11:12:19 testoster one cypionate 200 mg/mL intramusc ular oil 2024 025 [id number], [address] [place], [place], [id number], 11/15/2024 11:12:20 minoxidil 2.5 mg tablet 2023 024 [facility]46095, [address], [place], [place], [id number], 02/11/2024 16:18:46 testoster one cypionate 200 mg/mL intramusc ular oil 2023 024 [id number], [address], [place], [place], [id number], 02/11/2024 16:08:46 Patient TargetsNo targets recorded. Patient InstructionsNo instructions recorded. Reason for Referral None Reported. Results Created Date Observation Date Name Description Value Unit Range Abnormal Flag Note LastModifiedBy Organization Detail LastModifiedTime 08/23/1908/22/2024 CT, abdom en + pelvi s, w/wo contr ast No observ ation record ed. [facility] [address] [facility] [address], [place], [address], 08/23/2024 08:43:23 01/23/20 25 01/22/2025 CT, abdom en + pelvi s, w/o contr ast No observ ation record ed. [facility] [address], [place], [address], 01/23/2025 08:38:03 02/01/2001/22/2025 CT, abdom en + pelvi s, w/wo contr ast No observ ation record ed. [email or web address] [facility] [address], [place], [address], 01/31/2025 15:39:50 Result Notes None recorded. 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 on and off steroids Not Available [facility] 3 12:37:09 COVID-19 817065630 Active 2021 Not Available [facility] 3 12:37:09 Cough 29204594 Active 2021 Not Available [facility] 3 12:37:09 SARS-CoV -2 Active 2021 Not Available [facility] 3 12:37:09 Intolera nce to lactose 264583235 Active 2021 Not Available [facility] 3 12:37:09 Fatigue 38084681 Active 2021 Not Available [facility] 3 12:37:09 Umbilica l hernia 400845539 Active 2021 Not Available [facility] 3 12:37:09 Testoste una level below referenc e range 425764870 Active 2021 Not Available [facility] 3 12:37:09 Gastroes ophageal reflux disease 463211653 Active 2022 Not Available [facility] 3 12:37:09 Hypogona dism 32550956 Active 2022 Not Available [facility] 3 12:37:09 Loss of hair 123131469 Active 2022 Not Available [facility] 3 12:37:09 Primary hypogona dism 699681772 Active 2022 Not Available [facility] 3 12:37:09 Diarrhea 00621882 Active 2024 CALIN RAYA [address] [place], [address], [facility] 5 18:59:06 Abdomina l pain 58712997 Active 2024 CALIN RAYA [address] [place], [address], [facility] 5 16:40:51 Gastriti s 0038938 Active 2024 CALIN RAYA [address] [place] [address], [address], [facility] 5 16:51:53 Anorecta l fistula 72445209 Active 2024 CALIN RAYA [address] [place] [address], [address], [facility] 5 12:03:25 Gynecoma stia 5232924 Active 2024 CALIN RAYA [address] [place] [address], [address], [facility] 5 12:08:10 Serum estradio l above referenc e range Active 2024 CALIN RAYA [address] [place] [address], [address], [facility] 5 09:43:23 Male hypogona dism 93634703 Active 2024 CALIN RAYA [address] [place] [address], [address], [facility] 5 09:44:52 Colitis 56585579 Active 2024 CALIN RAYA [address] [place] [address], [address], [facility] 5 10:50:49 Divertic ulitis 642543924 Active 2024 CALIN RAYA [address] [place] [address], [address], [facility] 5 10:51:14 Perforat ion of colon 55989382 Active 2024 CALIN RAYA [address] [place] [address], [address], [facility] 5 15:18:49 Notes:Some problems listed i n Documents: #[id number], #[id number] could not be added to this patient's [...] and Address Organization Details Last Updated DateTime 5 172.72 cm 33.1 kg/m2 93607.1 4 g 80 /min 97 % 120/70 mm[Hg] Faina Vergara [facility] 5 10:34:49 Date Recorded Body height Body mass index (BMI) Body weight Heart rate Oxygen saturation Systolic And Diastolic Provider Name and Address Organization Details Last Updated DateTime 4 172.72 cm 33.2 kg/m2 10829.9 3 g 86 /min 95 % 124/88 mm[Hg] Corinne Laureano [facility] 4 16:02:06 Date Recorded Body height Body mass index (BMI) Body weight Heart rate Oxygen saturation Systolic And Diastolic Provider Name and Address Organization Details Last Updated DateTime 5 172.72 cm 33.1 kg/m2 06993.1 4 g 78 /min 98 % 120/70 mm[Hg] Faina Vergara [facility] 5 13:39:36 Social History Question Answer Notes LastModified by Organizat ion Details LastModified Time Tobacco Smoking Status Never Smoker Dona walters [facility] 01/28/2018 09:17:51 What Was The Date Of Your Most Recent Tobacco Screening? 05/09/2025 [email or web address] Information not available 05/09/2025 Sex: Male Functional Status Question Answer Note LastModified by Organization D etails LastModified Time Do you or have you ever used any other forms of tobacco or nicotine? No [email or web address] Information not available 01/29/2023 Mental Status None recorded. Family History Nothing Reported. Medical History No medical history recorded. Immunizations Vaccine Type Date Status Note Provider Scott jaime and Address Organization Details Recorded Time Tdap 02/05/2011 completed Not Available [facility] 04/13/2023 12:37:10 Past Encounters Encounter ID Performer Location Encounter Start Date Encounter Closed Date Diagnosis/Indication Diagnosis SNOMED-CT Code Diagnosis ICD10 Code Diagnosis IMO Codes Diagnosis Note [id number] Yasir Del Rio [facility] [address] [facility],[place] [address] 01/28/2018 09:14:33 01/28/2018 09:42:40 Adult health examination 920061357 Z00.01 Impaired f asting glycemia 523935569 R73.01 Eczema 11589155 L30.9 currently inactive 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 [id number] Yasir Del Rio [facility] [address] [facility],[place] [address] 01/27/2019 16:03:34 01/27/2019 16:47:46 Male pattern alopecia 16777435 L64.9 Adult heal th examination 458789836 Z00.00 Active or passive immunization 080284318 Z23 Abnormal testosterone 13 7613386 R94.7 Venereal d isease screening 115251122 Z11.3 [id number] Yasir Del Rio [facility] [address] [facility],[place] [address] 02/12/2020 08:58:46 02/12/2020 10:33:20 Adult health examination 011583397 Z00.00 BP is excellent today Screening for cardiovascular system disease 892771684 Z13.6 will check labs Umbilical hernia 6469638 07 K42.9 will have him evaluated by general surgery [id number] Yasir Del Rio [facility] [address] [facility],[place] [address] 10/29/2021 09:41:53 10/29/2021 15:17:20 History of hernia repair 9446434072 9109 Z98.890 can take PRN following hernia repair surgery Anxiety 83489499 F41.1 will need refill Cough 66268621 R05.1 can use mucinex if needed COVID-19 213893022 U07.1 will continue to monitor symptoms [id number] Yasir Del Rio DO [facility] [address] [facility], [place] [address] 11/10/2021 13:33:10 11/11/2021 09:15:25 Intolerance to lactose 090140574 E73.0 will fu with splunk dashboard developer referral Fatigue 17703206 R53.83 will fu with testostero ne check Umbilical hernia 8062737 07 K42.9 resolved with surgery [id number] Yasir Del Rio DO [facility] [address] [facility], [place] [address] 01/28/2022 15:59:47 01/28/2022 16:37:35 Active or passive immunization 185298382 Z23 pt advised past due; will consider getting at pharm Adult heal th examination 355081442 Z00.00 BP is excellent today Depression screening 171 134991 Z13.31 negative/ score 2 [id number] Yasir Del Rio DO [facility] [address] [facility] [place] [place] [address] 01/29/2023 15:59:13 01/29/2023 16:46:24 Active or passive immunization 223227732 Z23 pt advised past due; will consider getting at pharm Adult heal th examination 470936198 Z00.00 BP is excellent today Anxiety 10686267 F41.1 will need refill Gastroesop hageal reflux disease 392400996 K21.9 Hypercholesterolemia 136 59531 E78.2 needs recheck BW Impaired f asting glycemia 220728243 R73.01 stableneed s recheck Testostero ne level below reference range 113638253 R79.89 will set up with levels again per endo Hypogonadism 58944587 E2 9.1 will set up with T level Loss of hair 615837457 L 63.1 switch to pilldoes not want topical [id number] Yasir Del Rio [facility] [address] [facility],[place] [place] [address] 03/22/2023 09:03:19 03/22/2023 10:41:05 Primary hypogonadism 002965184 E29.1 will set up with T gel againtwo low values, [facility] with symptoms, worsening Impaired f asting glycemia 754236115 R73.01 A1c is up to 6.0%discus sed dietary changes [id number] Yasir Del Rio [facility] [address] [facility], [place] [address] 09/03/2023 15:58:30 09/03/2023 16:17:12 Pre-surgery evaluation 546419764 Z01.818 The patient was seen in the office today for pre-op evaluation . All medical conditions on patient's problem list were addressed and are currently stable, no interventi on needed at this time. Based on history and physical performed, the patient is cleared for surgery. lab work will be sent separately [id number] Yasir Del Rio [facility] [address] [facility], [place] [address] 02/11/2024 15:57:28 02/11/2024 16:31:55 Active or passive immunization 338202382 Z23 pt advised past due; [facility] Adult heal th examination 582151334 Z00.00 BP is excellent today Depression screening 171 588746 Z13.31 negative/ score 2 Primary hypogonadism 370 190748 E29.1 increased to twice a week instead for better effect for patientnee ds adjustment of needle amount Loss of hair 869537220 L 63.1 switch to pilldoes not want topical [id number] Yasir Del Rio [facility] [address] [facility],[place] [address] 09/19/2024 11:50:07 09/19/2024 13:20:53 Abdominal pain 75661202 R10.9 resolved Anorectal fistula 429429 05 K60.50 8928 has fu with Gen Surg 09/25/24 Hypogonadism 43460140 E2 9.1 will set up with lab work before start aromatase inhibitor Gynecomastia 1682035 N62 659124 will set up with lab work [id number] Yasir Del Rio [facility] [address] [facility] [place] [address] 11/15/2024 10:24:35 11/15/2024 11:17:43 Depression screening 866423465 Z13.31 1211013 negative Diverticulitis 143240720 K57.92 20673 doing great, stable, seeing GI, recent colonoscop y was normal Primary hypogonadism 370 046683 E29.1 stable [id number] Yasir Del Rio [facility] [address] [facility] [place] [address] 01/02/2025 13:40:36 01/02/2025 15:38:56 Colitis 64465447 K52.9 [id number] Anorectal fistula 822252 05 K60.50 8928 has appt Perforation of colon 502 25741 K63.1 344834 [id number] CALIN RAYA [facility] [address] [facility] [address] [place] [address] 05/09/2025 13:32:28 05/09/2025 14:16:50 General examination of patient 473026310 Z00.00 269482 BP is excellent today Impaired f asting glycemia 068705367 R73.01 will set up with screening Hypogonadism 52217447 E2 9.1 will set up with lab work before start aromatase inhibitor Primary hypogonadism 370 635737 E29.1 stable Health Concerns Section Related Observation LastModified by Organization Detai ls LastModified Time None Recorded Concern Status LastModified by Organization Details LastModified Time None Recorded Advance Directives Directive None Recorded Payers Insurance Date Sequence Insurance Name Policy Number Policy Rios Covered Member ID Rios Member ID Guarantor Name 05/06/2025 1 [facility] [id number] Jim Saunders [id number] Jim Saunders Notes Date Note Type Note Provider Name a nd Address Organization Details Recorded Time 4 text/html Annual WellnessReported by PatientSocial/Behavior al HistoryFor diet and nutrition, patient reportshealthy diet,discussed vitamin and supplement use,discussed portion control,discussed maintaining calcium balance, anddiscussed diet improvement. For fracture risk, patient reportsno history of fractures,no recent explained fracture,no sudden unexplained fractures, andno previous musculoskeletal injuries. For physical activity, patient reportsexercises on a regular basis,recent increase in physical activity, andgood physical condition. For additional lifestyle factors, patient reportsno tobacco use,no alcohol intake, andstopped drinking alcohol.Mental Status:For depression risk, patient reportsnever feels sad, empty, or tearful,no loss of interest in activities,no significant changes in weight,no sleep disturbances or insomnia,no agitation,no loss of energy,no feelings of worthlessness or guilt,no thoughts of suicide,no history of depression, andno history of mood disorders.Functional AbilityFor hearing, patient reportsno loss of hearing. For vision, patient reportsno vision problems. better after surgery for sleephas a f/u at home sleep study to compare needs CALIN RAYA [address] [place] [address], [address], [facility] 02/11/2024 16:31:36 5 text/html ROS as noted in the HPI f/u lab work and hospital d/c The patient is participating in this appointment via telemedicine communication with a phone call/video calling service ([employer])The patient consents to use of these platforms in place of an in-person appointment due to either sick symptoms the patient is presenting with or current office closure due to COVID exposure in order to keep our office staff and patients safe patient has gynecomastia wanted to talk me about a aromatase inhibitor on top of the T injectionspatient will get me updated blood work prior to starting any new medications to see if that is a correct option or if there's another cause we have to work on first patient agrees did have NPO x 4 days before released from the hospital with low fiber diet instructionshas fu with them 09/25/24 to discuss next options after they perform his colonoscopy CALIN RAYA [address] [place], [address], [facility] 09/19/2024 12:15:24 5 text/html ROS as noted in the HPI f/u medication check the patient has been using the tamoxifen since MB prescribed it after we started the anastrozole with me prior to this, tamoxifen is working better for patient with the T therapy he is already usingthe patient reports that he is feeling better overall the patient is down in weight, has been very consistent with exercise and diet changeshas been using peptide therapy for the diverticulitis the patient will continue on the anastrozole and the tamoxifen the patient had lab workthe estrogen result still isn't back will work on getting patient o Hcg injadjusted dose up of the T to 0.75 mL x twice a weektotal comes up to 6 mL per 30 dayswill see if we can increase amount he gets more month CALIN RAYA [address] [place], [address], [facility] 11/15/2024 11:15:14 5 text/html ROS as noted in the HPI c/o colitis The patient is participating in this appointment via telemedicine communication with a phone call (audio) only.The patient consents to use of these platforms in place of an in-person appointment due to either patient being acutely ill (being in office would put our staff and our other patients at risk) or unable to make an in-person appointment due to either lack of transportation, severe medical condition, immunocompromised, etc.The appointment took place over a phone call (audio) due to patient's inability to access or use an audio and visual platform. the patient reports that he started getting abdominal painthe patient did talk to his surgeon's office, at the time they stated abx wasn't necessary at the time he talked to them (Wednesday) the patient reports that he thinks it was triggered by his foodthe patient will need to go on a liquid diet for 24 hours, add in bland food, no seeds, nuts, legumes, grains will keep me updatedhas surgery planned for Jan for a partial colectomy CALIN RAYA [address] [facility], [place], [address], [facility] 01/02/2025 15:19:19 5 text/html Annual WellnessReported by PatientSocial/Behavior al HistoryFor diet and nutrition, patient reportshealthy diet,discussed [...] lifestyle factors, patient reportsno tobacco useanddrinks alcohol (mild-moderate).Mental Status:For depression risk, patient reportsnever feels sad, [...] no sob, no abdominal pain CALIN RAYA [address] [place] [address], [address], [facility] 05/09/2025 14:16:48
--- OUTSIDE RECORDS SUMMARY | 2025-05-09 22:36 | XMS_ITS ---
Author Name [facility] Organization Unknown History of Medication Use Medication Directions Dispensed Refills Start Date End Date Stat us anastrozole (ARIMIDEX) 1 MG tablet Take 1 mg by mouth 11/07/2024 active minoxidil (LONITEN) 2.5 MG tablet Take 5 mg by mouth. 11/07/2024 ac tive tamoxifen (NOLVADEX/SOLTAMOX) 20 MG tablet Take 20 mg by mouth 11/07/2024 act syl levoFLOXacin (LEVAQUIN) 750 MG tablet take 1 tablet by mouth every day for 7 days 08/26/2024 active Problems Problem Status Onset Date Problem Type Date of Resoluti on Source Umbilical hernia active 2021-11-10 ProblemAct [facility] Gynecomastia active 2024-09-19 ProblemAct [facility] Class 1 obesity active 2024-11-17 ProblemAct HH CCT Hypercholesterolemia active 2018-01-26 ProblemAct [facility] Abdominal pain active 2024-08-[address] Lactose intolerance active 2021-11-10 ProblemAct [facility] Anxiety active 2018-01-26 ProblemAct [facility] Gastroesophageal reflux disease active 2022-10-23 ProblemAct [facility] Impaired fasting glucose active 2018-01-26 ProblemAct [facility] 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 ProblemAc t [facility] Gastritis active 2024-08-09 ProblemAct [facility] Decreased testosterone level active 2021-11-25 ProblemAct [facility] Anorectal fistula active 2024-09-19 ProblemAct [facility] Diverticulitis active 2024-11-[address] Loss of hair active 2023-01-29 ProblemAct [facility] Fatigue active 2021-11-10 ProblemAct [facility] Person with feared health complaint in whom no diagnosis is made active 2022-02-20 ProblemAct [facility] Immunizations Vaccine Date Source Lot Number Status Tdap 02/05/2011 [facility] completed Tdap 02/05/2011 [facility] completed Encounters Encounter Type Encounter Reason Primary Diagnosis Location Date Ambulatory Snoring Snoring [place] 11/23/2024 Ambulatory Obstructive sleep apnea (adult) (pediatric) Obstructive sleep apnea (adult) (pediatric) [place] 03/10/2024 Care Team Organization Name Specialty Phone Email Start Date End [facility] te [facility] 03/22/2025 [place] [facility] 11/23/2024 12/22/2024 [facility] 10[facility]27/2024 [place] NO PCP Primary Care 10/09/2024 [place] 03/12/2024 12/22/2024 [place] 03/10/2024 [facility] 07/05/2023
--- OUTSIDE RECORDS SUMMARY | 2025-05-09 22:36 | XMS_ITS | Clinical Summary ---
Author Organization [facility] Address [address] [address] Phone Care Team Providers Care Dock Boss Name Role Phone Yasir Del Rio Primary Care Provider [phone] Allergies No known active allergies Medications LORazepam (ATIVAN) 1 MG tablet Take 1 mg by mouth every 8 (eight) hours as needed. Active buPROPion (WELLBUTRIN) 75 MG immediate release tablet Take 75 mg by mouth 2 (two) times a day. Active lactase (LACTAID) 3,000 unit tablet Take 3,000 Units by mouth 3 (three) times a day with meals. Active calcium carbonate 500 mg (200 mg elemental) chewable tablet Take 1 tablet by mouth daily. Active lactobacillus rhamnosus, GG, (CULTURELLE) 10 billion cell capsule Take 1 capsule by mouth daily. Active acetaminophen (TYLENOL) 325 mg tablet Take 2 tablets (650 mg total) by mouth every 4 (four) hours as needed for mild pain. 0 2 Active Additional Information Patient not taking.Reported on 02/20/2022 ibuprofen (ADVIL,MOTRIN) 200 MG tablet Take 2 tablets (400 mg total) by mouth every 6 (six) hours as needed for pain (specific location in comments). 2 Active Additional Information Patient not taking.Reported on 02/20/2022 Active Problems Problem Noted Date Diagnosed Date Person with feared health co mplaint in whom no diagnosis is made 02/20/2022 Assessment & Plan (02/20/2022 1:20 PM EDT): The patient has various symptoms that could be associated with hypergonadism such as decreased libido decrease energy. However upon doing for endocrine work-up both bioavailable and free testosterone levels are in the reference range. Total testosterone have been in the reference range. Gonadotropins prolactin levels DHEA-S are in the reference range. His LDL is elevated at 187mg/mL but if he has no risk factors and LDL less than 190 mg and susceptible. Since I did not find a diagnosis of hypogonadism I cannot recommend testosterone therapy. My suspicion is that the patient is feeling symptomatic because he has become accustomed to exogenous testosterone therapy. Of course I cannot prescribe testosterone to the patient who does not have hypogonadism. I would not give the patient a follow-up appointment. 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 He did use hCG in order to prevent testicular atrophy. He also used Clomid and naproxen to prevent gynecomastia. He most likely has hypogonadotropic hypogonadism due to the use of exogenous testosterone therapy. Currently he is off the medication and he complains of decreased energy, decreased libido, inability to sleep for insomnia and complaints of hair loss. Apparently his healthcare carrier requested that he see an sales and marketing manager before they will cover testosterone therapy weekly. This point I know noted that his PSA levels have been in the reference range hemoglobin and hematocrit levels are increased in the past to above the reference range so have the testosterone levels from time to time as well as estrogen. Prolactin levels has been in the normal reference range and this was done fasting first in the morning. I will repeat gonadotropin levels including prolactin and testosterone levels lipid panel CBC, DHEA-S and estrogen. S/P umbilical hernia repair, follow-up exam 10/29 Immunizations Immunization Administration Dates Next Due Tdap 02/05/2011 Family History Medical History Relation Comments No Known Problems Father Thyroid disease Mother Relation Status Comments Father Alive Mother Alive Social History Tobacco Use Types Packs/Day Years Used Date Smoking Tobacco: Never Smokeless Tobacco: Never Alcohol Use Standard Drinks/Week Comments Yes 0 (1 standard drink = 0.6 oz pur e alcohol) occasionally Education Answer Date Recorded Are you interested in more education? Not on sammi e 09/25/2022 Are you concerned about learning? Not on file 09/25/2022 No 09/25/2022 No 09/25/2022 Digital Access Answer Date Recorded No 10/26/2022 No 10/26/2022 No 10/26/2022 Reliable internet access at home? Not on file 10/26/2022 Device with a working camera? Not on file Sex and Gender Information Value Date Recorded Sex Assigned at Not on file Legal Sex Male 9:19 PM EDT Gender Identity Not on file Sexual Orientation Not on file Last Filed Vital Signs Vital Sign Reading Time Taken Comments Blood Pressure 120/70 02/20/2022 1:12 PM EDT Pulse 88 02/20/2022 1:12 PM EDT Temperature 36.6 C (97.8 F) 11/12/2021 3:51 PM EDT Respiratory Rate 18 10/15/2021 7:00 PM EDT Oxygen Saturation 96% 02/20/2022 1:12 PM EDT Inhaled Oxygen Concentration - - Weight 97.1 kg (214 lb) 02/20/2022 1:12 PM EDT Height 173.4 cm (5' 8.27 ) 02/20/2022 1:12 PM ED T Body Mass Index 32.28 02/20/2022 1:12 PM EDT Plan of Treatment Health Maintenance Due Date Last Done Comments DEPRESSION SCREENING 1993 HEPATITIS C SCREENING 10/19/1999 HIV ONE-TIME SCREENING (18-6 5 YEARS) 10/19/1999 Adult Td,Tdap Booster 02/05/2021 02/05/2011 INFLUENZA VACCINE (#1) 2024 COVID-19 VACCINE (1 - 2024-2 6 season) 2025 LIPID PANEL 01/17/2027 01/17/2022 SMOKING STATUS SCREENING (On ce After 26 Yrs) Completed 01/15/2022 HEPATITIS A VACCINES Aged Out No long er eligible based on patient's age to complete this topic HIB VACCINES Aged Out No longer eligi ble based on patient's age to complete this topic MENINGOCOCCAL VACCINES (ACWY) Aged Out No longer eligible based on patient's age to complete this topic MENINGOCOCCAL VACCINES (B) Aged Out N o longer eligible based on patient's age to complete this topic PNEUMOCOCCAL VACCINES (0-49 years) Aged Out No longer eligible based on patient's age to complete this topic Medical Devices Implanted Type Area Slasher Tender Helper Device Identifier Shelf Expiration Date Model / Serial / Lot Mesh Surgical 1 32/32in Hernia Prolene 3d Polypropylene Patch Bx/3ea - [id number] Implanted:Qty: 1 on 10/15/2021 by Nikky Wall MD at [facility] STANDARD N/A: Umbilical [employer] / DIVISION OF J 05/30/[id number] / / [id number] Procedures Procedure Name Priority Date/Time Associated Diagnosis Comments LIPID PANEL Routine 01/17/2022 9:55 AM EDT Hypogonadotropic hypogonadism from Last 3 Months or Most Recently Relevant to Health Maintenance Results * (ABNORMAL) Lipid panel (01/17/2022 9:55 AM EDT) HDL 55 mg/dL [facility] Comment: Interpretation <40 mg/dL: Low HDL cholesterol (major risk factor for CHD) Greater than or equal to 60 mg/dL: High HDL cholesterol ( negative risk factor for CHD) HDL - cholesterol is affected by a number of factors, e.g. smoking, excerise, hormones, sex and age. CHOLESTEROL 264(H) 0 - 240 mg/dL [facility] TRIGLYCERIDES 112 30 - 160 mg/dL [facility] LDL 187(H) 50 - 129 mg/dL [facility] Comment: LDL levels in terms of risk for coronary heart disease: <100 mg/dL: Optimal 100-129 mg/dL: Near or above optimal 130-159 mg/dL: Borderline high 160-189 mg/dL: High >190 mg/dL: Very High CARDIAC RISK RATIO 4.8 3.4 - 5.0 C [facility] Blood 01/17/2022 9:55 AM EDT 01/17/2022 10:03 AM EDT us Elias Wilson DO LAB BLOOD BKR ORDERABLES Final R esult [facility] [address] [place] [address] from Last 3 Months or Most Recently Relevant to Health Maintenance Insurance [employer] POS [employer] POS [employer] POS [employer] POS [employer] POS [employer] POS [id number] POS Advance Directives For more information, please contact: [phone] (9AM - 5PM [facility], Wednesday-Wednesday) * Full Code (Latest Code Status on File) Date Activated Date Inactivated Comments 10/15/2021 2:42 PM Question Answer Comments Code Status Confirmed With: Patient Care Teams Dock Boss Relationship Specialty Start Date End Date Yasir Del Rio DO [email or web address] PCP - General Internal Medicine 03/27/19 Additional Source Comments The information contained in this document represents components of the legal health record. It is not the complete legal health record.[facility]
[2025-05-10 10:14] LABS: Follicle Stimulating Hormone <0.7 mIU/mL (1.4-12.8)
== END 2025-05-09 14:23 | disposition home or self-care (01) ==
LOC: HO.MANLDS 14:22
PROVIDERS: Visit Provider Physician Assistant
DX: E29.1 Testicular hypofunction (principal); R73.01 Impaired fasting glucose
CPT/HCPCS: 36415; 80053; 82627; 82670; 82672; 83001; 83002; 84144; 84402; 84403; 85025